=== PATIENT | female | born 1990 | race Caucasian/White ===

== ENCOUNTER 2022-11-29 11:13 | Emergency (ER) | payer SELFPAY ==
[2022-11-29 11:14] VITALS: BP 119/68; PULSE 107; RESP 17; TEMP 36.5; O2SAT 100
[2022-11-29 11:28] VITALS: RESP 15
--- NOTE | 2022-11-29 11:30 | DI.RAD_ITS ---
Exam(s) XR KNEE RT 3V AP,LAT,JED EXAM: XR KNEE RT 3V AP,LAT,JED CLINICAL HISTORY: Pain. TECHNIQUE: 2D digital imaging was performed. Three views. COMPARISON: No exams were available for comparison FINDINGS: BONES: No acute fracture is present. No bony destructive lesion is seen. JOINTS: The knee is normally aligned. No joint effusion is seen. SOFT TISSUE: Normal. IMPRESSION: Unremarkable radiographs of the right knee. DATA REPOSITORY: RADIATION DOSE DELIVERED:
--- NOTE | 2022-11-29 11:30 | DI.US_ITS ---
Exam(s) US LOWER EXTREMITY VENOUS RT EXAM: US LOWER EXTREMITY VENOUS RT CLINICAL HISTORY: Swelling, thigh pain. TECHNIQUE: Lower extremity venous ultrasound performed using grayscale, color-flow, and spectral Do ppler analysis. COMPARISON: No exams were available for comparison FINDINGS: The common femoral, femoral and popliteal veins demonstrate normal compressibility, augmentation, and color Doppler. The posterior tibial veins are patent. No saphenous vein thrombosis or other superfi cial venous thrombosis is seen. No hematoma or Calvo's cyst is seen. IMPRESSION: Negative lower extremity ultrasound. No evidence of DVT. DATA REPOSITORY:
--- NOTE | 2022-11-29 11:38 | W.ED.GENAD ---
Discharge Plan Disposition Patient Disposition: Home Condition: Stable Discharge Details Clinical Impression: Right leg swelling Primary Care Provider: None,None ED Provider: Clotilde Egan Home Meds and New Rx's Prescriptions: New methylprednisolone [Medrol (Scooby)] 4 mg tablets,dose pack See Rx Instructions .ROUTE .COMPLEX Qty: 21 0RF Rx Instructions: orally per package directions Discharge Instructions Instructions: Leg Edema (ED) Additional Instructions: No evidence of hematoma, bakers cyst, or blood clot in your leg. No evidence of knee abnormality, no joint effusion or bony abnormality. At this time unsure to what is causing the pain other than possible Musculoskeletal strain. Continue to apply nick bandages, Rest, Ice, and elevation. Please take Tylenol or Ibuprofen with food every 4-6 hours as needed for pain and swelling. You may take the muscle relaxers as directed if needed. Follow up with primary care provider in 3-5 days. Return to ED sooner if any worsening or concerns. Increase oral fluids. 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 Denies known injury, has been taking Ibuprofen and applying Nick wrap with litle to no relief. Reports swelling to lateral thigh which has improved. No evidence of deformity or swelling. Contusion small noted to right lateral thigh. Patient is complaining of pain and Swelling which has somewhat resolved. this occured after Standing for prolonged periods of time. Ultrasound ordered and Right knee XR. Ultrasound negative for DVT, x-rays within normal limits. Unsure of cause for patient's pain or swelling. Discharged home with instructions on RICE procedures. This text was generated using [employer]ation system, please disregard any oddities of phrase or misspellings. HPI General Mode of arrival: ambulatory. Date/Time Provider Initiated Documentation: 11/29/22 11:30. Limitations to Documentation: no limitations. Information obtained by: patient, RN notes reviewed and old records reviewed. 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 Denies known injury, has been taking Ibuprofen and applying Nick wrap with litle to no relief. Reports swelling to lateral thigh which has improved. Related Data Home Medications Medication Instructions Recorded Confirmed methylprednisolone 4 mg tablets in See Rx Instructions PO .COMPLEX 11/29/22 a dose pack (Medrol (Scooby)) #21 dose pk Previous Rx's Medication Instructions Recorded methylprednisolone 4 mg tablets in See Rx Instructions PO .COMPLEX 11/29/22 a dose pack (Medrol (Scooby)) #21 dose pk Allergies Allergy/AdvReac Type Severity Reaction Status Date / Time montelukast [From Singulair] Allergy Intermediate Other (See Unverified 11/29/22 11:24 Comment) pseudoephedrine Allergy Intermediate Other (See Unverified 11/29/22 11:24 [From Sudafed] Comment) General Stated Complaint: Vascular AMIE: 3 Review of Systems All systems reviewed & are unremarkable except as noted in HPI and below Musculoskeletal Musculoskeletal: Reports as per HPI and Reports radiating pain into limb PFSH All Active Problems (Updated 11/29/22 @ 13:00 by Clotilde Egan NP) Right leg swelling (Acute) Social History Smoking/Tobacco Use Status: Current every day Tobacco Type: e-cigarettes Smoking risk assessment performed?: Yes Alcohol Intake: current Alcohol Intake frequency: holidays/special occasions only Alcohol type: wine Drug use: Never Substance use type: does not use Housing: house Exam Narrative Exam Narrative: Constitutional: Alert and oriented x3. Appears stated age. Normal body habitus. Head: Normocephalic, no trauma. Eyes: Pupils PERRL, Red reflex noted, EOM's intact. Eyelids symmetrical without lesions, discharge, or swelling. ENT: Bilateral TM's WNL, External ear normal to inspection, no mastoid TTP, swelling, or erythema, Nasal turbinates WNL, no nasal discharge. Normal dentition, Posterior pharynx WNL, no exudate. Chest: RRR, Normal S1, S2, distal pulses intact. Resp: Lungs clear to auscultation bilaterally, no wheezes, rales, or rhonchi. Abdomen: Soft, non-distended, Normoactive bowel sounds all 4 quads. Musculoskeletal: Normal gait, 5/5 strength to all four extremities. Skin: No suspicious rashes or lesions. Capillary refill less than 2 sec. Neurologic: Cranial nerves II-XII intact. Alert and oriented x 3. Motor: No deficits noted. Sensory: Intact bilaterally all 4 extremities. Hematologic/Lymphatic: No ecchymosis, no lymphadenopathy. Extrem Right lower extremity: hip/thigh Details: normal to inspection and tenderness Location: of the proximal upper leg Location: laterally Course Vital Signs Vital signs: Vital Signs Temperature 36.5 C 11/29/22 11:14 Pulse 107 H 11/29/22 11:14 Respiratory Rate 17 11/29/22 11:14 Blood Pressure 119/68 11/29/22 11:14 Pulse Oximetry 100 11/29/22 11:14 Temperature 36.5 C 11/29/22 11:14 Temperature Source Temporal Artery Scan 11/29/22 11:14 Pulse 107 H 11/29/22 11:14 Respiratory Rate 15 11/29/22 11:28 Respiratory Effort Normal 11/29/22 11:28 Respiratory Depth Normal 11/29/22 11:28 Respiratory Pattern Normal 11/29/22 11:28 Blood Pressure 119/68 11/29/22 11:14 Blood Pressure Position Sitting 11/29/22 11:14 Pulse Oximetry 100 11/29/22 11:14 Oxygen Delivery Method Room Air 11/29/22 11:14 Oxygen Flow Rate 0 11/29/22 11:14 Pain Level 6 11/29/22 11:28
[2022-11-29] MEDS: Cyclobenzaprine 10 MG TAB PO (13:10)
[2022-11-29] MEDS: Cyclobenzaprine 10 MG TAB, 3 TABS/BTL PO (13:10)
== END 2022-11-29 13:18 | disposition home or self-care (01) ==
PROVIDERS: Emergency Provider Registered Nurse Emergency
DX: R22.41 Localized swelling, mass and lump, right lower limb (principal); F17.290 Nicotine dependence, other tobacco product, uncomplicated
CPT/HCPCS: 73562; 81025; 99284; 93971

== ENCOUNTER 2023-04-15 18:54 | Emergency (ER) | payer SELFPAY ==
[2023-04-15] VITALS (14 sets, daily range): BP systolic 102–124; BP diastolic 21–71; PULSE 83–127; RESP 9–25; TEMP 36.4–36.5; O2SAT 95–100
[2023-04-15 19:13] LABS: Abs Immature Grans 0.04 10^3/uL (0.0-0.06); Absolute Basophil Count 0.06 10^3/uL (0.0-0.2); Absolute Lymphocyte Count 0.98 10^3/uL (1.2-3.4); Absolute Neutrophil Count 10.09 10^3/uL (1.2-6.7); Basophils % 0.5; Eosinophils % 0.9; HCT 45.2 % (36.0-46.0); HGB 15.2 g/dL (11.2-15.7); Immature Grans % 0.3; Lymphocytes % 8.4; MCH 30.3 pg (27.0-33.0); MCHC 33.6 % (32.0-36.0); MCV 90 fL (80-95); MPV 9.6 fL (8.0-11.0); Monocytes % 3.4; Neutrophils % 86.5; Platelet Count 236 10^3/uL (130-400); RBC 5.01 10^6/uL (3.93-5.22); RDW 12.4 % (11.7-14.6); RDW-SD 40.4 fL; WBC 11.67 10^3/uL (4.4-10.8)
[2023-04-15 19:14] LABS: Absolute Eosinophil Count 0.11 10^3/uL (0.0-0.7)
[2023-04-15] MEDS: Normal Saline 1,000 ML 1000 ML IV (19:18)
--- NOTE | 2023-04-15 19:20 | ED.GENADUL_ITS ---
HPI General Mode of arrival: ambulatory . Date/Time Provider Initiated Documentation: 04/15/23 18:58 . Limitations to Documentation: no limitations . Information obtained by: patient, RN notes reviewed and old records reviewed . HPI Narrative: 32 year old female presents to the ED with CC of N/V/D and periumbilical pain. It began on . She reports she spiked a fever yesterday and her family and boyfriend have recently had similar symptoms and diagnosed with Influenza A. Related Data Home Medications Medication Instructions Recorded Confirmed dicyclomine 10 mg capsule 10 mg PO TID PRN abdominal pain 04/15/23 #10 caps metoclopramide HCl 5 mg tablet 5 mg PO QACHS PRN nausea and 04/15/23 (Reglan) vomiting #14 tabs Previous Rx's Medication Instructions Recorded dicyclomine 10 mg capsule 10 mg PO TID PRN abdominal pain 04/15/23 #10 caps metoclopramide HCl 5 mg tablet 5 mg PO QACHS PRN nausea and 04/15/23 (Reglan) vomiting #14 tabs Allergies Allergy/AdvReac Type Severity Reaction Status Date / Time montelukast [From Singulair] Allergy Intermediate Other (See Verified 04/15/23 19:07 Comment) pseudoephedrine Allergy Intermediate Other (See Verified 04/15/23 19:07 [From Waldemar] Comment) General Stated Complaint: Nausea/Vomit/Diar AMIE: 3 Review of Systems All systems reviewed & are unremarkable except as noted in HPI and below Gastrointestinal Gastrointestinal: Reports abdominal pain, Reports diarrhea, Reports nausea and Reports vomiting Exam Narrative Exam Narrative: Constitutional: Alert and oriented x3. Appears stated age. Normal body habitus. Head: Normocephalic, no trauma. Eyes: Pupils PERRL, Red reflex noted, EOM's intact. Eyelids symmetrical without lesions, discharge, or swelling. ENT: Bilateral TM's WNL, External ear normal to inspection, no mastoid TTP, swelling, or erythema, Nasal turbinates WNL, no nasal discharge. Normal dentition, Posterior pharynx WNL, no exudate. Chest: RRR, Normal S1, S2, distal pulses intact. Resp: Lungs clear to auscultation bilaterally, no wheezes, rales, or rhonchi. Abdomen: Soft, non-distended, Normoactive bowel sounds all 4 quads. Musculoskeletal: Normal gait, 5/5 strength to all four extremities. Skin: No suspicious rashes or lesions. Capillary refill less than 2 sec. Neurologic: Cranial nerves II-XII intact. Alert and oriented x 3. Motor: No deficits noted. Sensory: Intact bilaterally all 4 extremities. Reflexes: DTR's intact bilaterally.. Hematologic/Lymphatic: No ecchymosis, no lymphadenopathy. Course Vital Signs Vital signs: Vital Signs Temperature 36.4 C L 04/15/23 19:00 Pulse 127 H 04/15/23 19:00 Respiratory Rate 16 04/15/23 19:00 Blood Pressure 118/69 04/15/23 19:00 Pulse Oximetry 100 04/15/23 19:00 Temperature 36.4 C L 04/15/23 19:00 Pulse 127 H 04/15/23 19:00 Respiratory Rate 16 04/15/23 19:00 Blood Pressure 118/69 04/15/23 19:00 Blood Pressure Position Supine 04/15/23 19:00 Pulse Oximetry 100 04/15/23 19:00 Oxygen Delivery Method Room Air 04/15/23 19:00 Oxygen Flow Rate 0 04/15/23 19:00 Pain Level 8 04/15/23 19:00 Lab/Test Results Lab/Test Results: Laboratory Tests Range/Units 04/15/23 19:05 WBC (4.4-10.8) 10^3/uL 11.67 H RBC (3.93-5.22) 10^6/uL 5.01 Hgb (11.2-15.7) g/dL 15.2 Hct (36.0-46.0) % 45.2 MCV (80-95) fL 90 MCH (27.0-33.0) pg 30.3 MCHC (32.0-36.0) % 33.6 RDW (11.7-14.6) % 12.4 Plt Count (130-400) 10^3/uL 236 MPV (8.0-11.0) fL 9.6 Immature Gran % 0.3 Neutrophils % 86.5 Lymphocytes % 8.4 Monocytes % 3.4 Eosinophils % 0.9 Basophils % 0.5 Nucleated RBC % (0.0-0.3) % 0.0 Absolute Neutrophils (1.2-6.7) 10^3/uL 10.09 H Absolute Lymphocytes (1.2-3.4) 10^3/uL 0.98 L Absolute Monocytes (0.1-0.8) 10^3/uL 0.40 Absolute Eosinophils (0.0-0.7) 10^3/uL 0.11 Absolute Basophils (0.0-0.2) 10^3/uL 0.06 Medical Decision Making 32 year old female presents to the ED with CC of N/V/D and periumbilical pain. It began on . She reports she spiked a fever yesterday and her family and boyfriend have recently had similar symptoms and diagnosed with Influenza A. Workup ordered including CBC, CMP, lipase, urinalysis, urine Prag and Fluvid. Liter of normal saline and Reglan. Patient is been taking Zofran p.o. unsure of last dose at home with little to no relief. On patient reevaluation, she is still c/o abd pain, Toradol ordered and additional liter of LR. Mild leukocytosis 11.67, glucose 107, urinalysis shows 40 ketones moderate blood 5-10 RBCs no leukocytes no nitrites cultures not indicated at this time. Stool studies added onto labs for bacterial pathogen and ova parasites. CT is indicative of gastroenteritis, will send patient home with some Reglan, dicyclomine and clear liquid diet advance as tolerated. Additional liter of LR done infusing, Droperidol 1.25 mg IV ordered for Nausea and abdominal pain. This text was generated using [employer] dictation system, please disregard any oddities of phrase or misspellings. Imaging Data Radiologic Study: Imaging: CT Scan Radiologist's impression: COMPARISON: US LOWER EXTREMITY VENOUS RT 11/29/2022 12:10 PM FINDINGS: Liver: Normal. Gallbladder and bile ducts: Normal. Pancreas: Normal. Spleen: Normal. Adrenal glands: Normal. No mass. Kidneys and ureters: Normal. Stomach and bowel: Multiple loops of nondilated, gas and fluid-filled small and large bowel, likely enteritis/diarrhea. Appendix: Appendix normal. Intraperitoneal space: Small amount of pelvic free fluid, likely physiologic. Vasculature: Unremarkable. No abdominal aortic aneurysm. Lymph nodes: Unremarkable. No enlarged lymph nodes. Urinary bladder: Unremarkable as visualized. Reproductive: Unremarkable as visualized. Bones/joints: No acute abnormality. Soft tissues: Small fat containing umbilical hernia. IMPRESSION: Multiple loops of nondilated, gas and fluid-filled small and large bowel, likely enteritis/diarrhea. Thank you for allowing us to participate in the care of your patient. Dictated and Authenticated by: Jacob Gonzales MD Lab Data Lab results reviewed: Yes I reviewed the patient's lab results. Labs: Laboratory Tests Range/Units 04/15/23 19:05 WBC (4.4-10.8) 10^3/uL 11.67 H RBC (3.93-5.22) 10^6/uL 5.01 Hgb (11.2-15.7) g/dL 15.2 Hct (36.0-46.0) % 45.2 MCV (80-95) fL 90 MCH (27.0-33.0) pg 30.3 MCHC (32.0-36.0) % 33.6 RDW (11.7-14.6) % 12.4 Plt Count (130-400) 10^3/uL 236 MPV (8.0-11.0) fL 9.6 Immature Gran % 0.3 Neutrophils % 86.5 Lymphocytes % 8.4 Monocytes % 3.4 Eosinophils % 0.9 Basophils % 0.5 Nucleated RBC % (0.0-0.3) % 0.0 Absolute Neutrophils (1.2-6.7) 10^3/uL 10.09 H Absolute Lymphocytes (1.2-3.4) 10^3/uL 0.98 L Absolute Monocytes (0.1-0.8) 10^3/uL 0.40 Absolute Eosinophils (0.0-0.7) 10^3/uL 0.11 Absolute Basophils (0.0-0.2) 10^3/uL 0.06 Sodium (136-145) mmol/L 137 Potassium (3.5-5.1) mmol/L 3.6 Chloride (98-107) mmol/L 102 Carbon Dioxide (21.0-32.0) mmol/L 23.9 Anion Gap (3-11) mmol/L 11.1 H BUN (7-18) mg/dL 7 Creatinine (0.55-1.02) mg/dL 0.9 Est GFR (CKD-EPI 2020) (mL/min/1.73m2) 88.20 Glucose (74-106) mg/dL 107 H Calcium (8.5-10.1) mg/dL 8.8 Magnesium (1.8-2.4) mg/dL 1.9 Total Bilirubin (0.2-1.0) mg/dL 0.2 AST (15-37) U/L 21 ALT (14-59) U/L 17 Alkaline Phosphatase (46-116) U/L 54 Total Protein (6.4-8.2) g/dL 7.6 Albumin (3.4-5.0) g/dL 3.7 Lipase (16-77) U/L 16 COVID-19 Source Nasopharynx SARS-CoV-2 (PCR) (Negative) Negative Influenza Type A (PCR) (Negative) Negative Influenza Type B (PCR) (Negative) Negative RSV (PCR) (Negative) Negative Quality:SDOH Health Related Social Needs: No Data to Display PFSH All Active Problems (Updated 04/15/23 @ 21:48 by Clotilde Egan NP) Gastroenteritis (Acute) Social History Smoking/Tobacco Use Status: Current every day Tobacco Type: e-cigarettes Smoking risk assessment performed?: Yes Alcohol Intake: current Alcohol Intake frequency: holidays/special occasions only Alcohol type: wine Drug use: Never Substance use type: does not use Housing: house Discharge Plan Disposition Patient Disposition: Home Condition: Stable Discharge Details Clinical Impression: Gastroenteritis Primary Care Provider: None,None ED Provider: Clotilde Egan Meds and New Rx's Prescriptions: New metoclopramide HCl [Reglan] 5 mg tablet 5 mg PO QACHS PRN (Reason: nausea and vomiting) Qty: 14 0RF Rx Instructions: Take one tablet before meals and at bedtime as needed for N/V dicyclomine 10 mg capsule 10 mg PO TID PRN (Reason: abdominal pain) Qty: 10 0RF Rx Instructions: Take one capsule by mouth up to 3 times daily as needed for stomach cramping. Discharge Instructions Instructions: Gastroenteritis (ED) Additional Instructions: At this time there is some inflammation of your bowel wall indicative of gastroenteritis or the stomach flu. No evidence for influenza A COVID or RSV. Your labs are all largely unremarkable. No electrolyte abnormality. Please take the nausea medication and abdominal cramping medication as directed. Clear liquids for the next 24 to 48 hours, advance as tolerated. Practice a bland diet stay away from anything fried fatty spicy or dairy. Follow up with primary care provider in 3-5 days. Return to ED sooner if any worsening or concerns. Increase oral fluids. Please drink Gatorade or electrolyte drink while having diarrhea. If this lasts longer than 7 days please take Imodium as directed.
[2023-04-15] MEDS: Metoclopramide 10 MG/2 ML VIAL IVP (19:23)
[2023-04-15 19:25] LABS: ALT 17 U/L (14-59); AST 21 U/L (15-37); Albumin 3.7 g/dL (3.4-5.0); Alkaline Phosphatase 54 U/L (46-116); Anion Gap 11.1 mmol/L (3-11); BUN 7 mg/dL (7-18); Bilirubin, Total 0.2 mg/dL (0.2-1.0); CO2 23.9 mmol/L (21.0-32.0); CREATININE 0.9 mg/dL (0.55-1.02); Calcium 8.8 mg/dL (8.5-10.1); Chloride 102 mmol/L (98-107); Glucose 107 mg/dL (74-106); Lipase 16 U/L (16-77); Magnesium 1.9 mg/dL (1.8-2.4); Potassium 3.6 mmol/L (3.5-5.1); Sodium 137 mmol/L (136-145); Total Protein 7.6 g/dL (6.4-8.2)
--- NOTE | 2023-04-15 20:15 | DI.CT_ITS ---
Exam(s) CT ABDOMEN PELVIS W EXAM: CT ABDOMEN PELVIS W CLINICAL HISTORY: Abdominal Pain, N/V/D TECHNIQUE: Imaging Protocol: Axial computed tomography images with coronal and sagittal reformatted images were created and reviewed. CONTRAST MATERIAL: Intravenous: Omnipaque 350 Contrast volume:100 mL Oral: No COMPARISON: No exams were available for comparison FINDINGS: ABDOMEN: Lung Bases: Normal where visualized. Liver: Normal density. No measurable mass. Portal, Superior Mesenteric, and Splenic Veins: Unremarkable. Gallbladder and Biliary Tract: No radiodense calculus or dilation. Pancreas: Normal density, no abnormal calcifications or inflammatory process. Spleen: Normal. Calcification in the spleen may reflect prior granulomatous disease. Adrenals: No masses seen. Kidneys: Normal size, contour and axis. No radiodense stones or obstructive uropathy. No masses seen. Abdominal Aorta: Abdominal portion non-dilated. Bowel: No obstruction or bowel wall thickening. Appendix is unremarkable. The stomach is incompletely distended limiting evaluation. There are fluid-filled loops of small and large bowel which can be s een with a diarrheal illness. Peritoneal Cavity: There is a small amount of fluid in the pelvis. No free air. Lymph Nodes: Within normal limits. Bones: Within normal limits for the patient's age. Soft Tissues: There is a small fat containing umbilical hernia. PELVIS: Bladder: The urinary bladder is not distended limiting evaluation. Reproductive Organs: Unremarkable as visualized. Lymph Nodes: Within normal limits. Bones: Within normal limits for the patient's age. IMPRESSION: There are fluid-filled loops of small and large bowel noted which can be seen with diarrheal illness. RADIATION DOSE DELIVERED: 841.18mGy.cm Total DLP DATA REPOSITORY: All CT scans at this facility are submitted to the National Radiology Data Registry (NRDR) Dose Index Registry (DIR) with the [employer] (A[employer]). RADIATION OPTIMIZATION: All CT scans at this facility use at least one of these dose optimization te chniques: automated exposure control; mA and/or kV adjustment per patient size (includes targeted exa ms where dose is matched to clinical indication); or iterative reconstruction.
[2023-04-15 20:20] LABS: COVID-19 PCR Negative (Negative); Influenza A PCR Negative (Negative); Influenza B PCR Negative (Negative); RSV PCR Negative (Negative)
[2023-04-15 20:21] LABS: Source Nasopharynx
[2023-04-15] MEDS: Normal Saline - Diluent 50 ML VIAL IJ (20:37)
[2023-04-15] MEDS: Omnipaque 350 MG/ML 100 ML BTL IJ (20:38)
--- NOTE | 2023-04-15 21:44 | DI.VRAD_ITS ---
PROCEDURE INFORMATION: Exam: CT Abdomen And Pelvis With Contrast Exam date and time: 04/15/2023 8:41 PM Age: 32 years old Clinical indication: Abdominal tenderness and nausea and vomiting; Patient HX: Abdominal pain, n/v/d TECHNIQUE: Imaging protocol: Computed tomography of the abdomen and pelvis with contrast. Contrast material: OMNIPAQUE 350; Contrast volume: 100 ml; Contrast route: INTRAVENOUS (IV); COMPARISON: US LOWER EXTREMITY VENOUS RT 11/29/2022 12:10 PM FINDINGS: Liver: Normal. Gallbladder and bile ducts: Normal. Pancreas: Normal. Spleen: Normal. Adrenal glands: Normal. No mass. Kidneys and ureters: Normal. Stomach and bowel: Multiple loops of nondilated, gas and fluid-filled small and large bowel, likely enteritis/diarrhea. Appendix: Appendix normal. Intraperitoneal space: Small amount of pelvic free fluid, likely physiologic. Vasculature: Unremarkable. No abdominal aortic aneurysm. Lymph nodes: Unremarkable. No enlarged lymph nodes. Urinary bladder: Unremarkable as visualized. Reproductive: Unremarkable as visualized. Bones/joints: No acute abnormality. Soft tissues: Small fat containing umbilical hernia. IMPRESSION: Multiple loops of nondilated, gas and fluid-filled small and large bowel, likely enteritis/diarrhea. Dictated and Authenticated by: Jacob Gonzales MD. Ordering:REGIAN Mabry MD
[2023-04-15] MEDS: Famotidine 20 MG/2 ML VIAL IVP (21:49)
[2023-04-15] MEDS: Ketorolac 15 MG/ML VIAL IVP (21:49)
[2023-04-15] MEDS: Normal Saline Flush 10 ML SYR IVP (21:50)
[2023-04-15] MEDS: Lactated Ringers 1,000 ML 1000 ML IV (21:50)
[2023-04-15 22:50] LABS: Bilirubin Negative (Negative); Blood Moderate (Negative); Clarity Clear (Clear); Glucose Negative (Negative); Ketones 40 mg/dL (Negative); Leukocyte Esterase Negative (Negative); Nitrite Negative (Negative); Specific Gravity <= 1.005 (1.005-1.025); Urobilinogen 0.2 mg/dL (Up to 0.2); pH 5.5 (5-8)
[2023-04-15 22:55] LABS: WBC Negative HPF (0-5)
[2023-04-15 22:56] LABS: Bacteria Rare HPF (Negative); C & S Indicated? No; Casts Negative LPF (Negative); Crystals Negative HPF (Negative); Epithelial Cells Rare HPF (Negative); Mucus Negative (Negative)
[2023-04-15] MEDS: Droperidol 5 MG/2 ML VIAL 1.25 MG IVP (23:12)
[2023-04-15] MEDS: Dicyclomine 10 MG CAP PO ×2 (23:53)
[2023-04-15] MEDS: Metoclopramide 10 MG TAB 5 MG PO (23:53)
[2023-04-16 22:36] LABS: Campylobacter PCR Negative (Negative); Salmonella PCR Negative (Negative); Shiga Toxin PCR Negative (Negative); Shigella/Enteroinvasive Ecoli Negative (Negative)
--- NOTE | 2023-04-17 15:06 | NUR.NOTE ---
Patient called asking for a work note. Note written Please excuse from work until Monday04/21/23. [facility] Copy sent to medical records and original mailed to patient. Nursing Note:
--- NOTE | 2023-04-19 17:42 | NUR.NOTE ---
Nursing Note: Yusra Whalen - took patient call for stool results. Was able to view results in chart and relay inforamation to patient. However, was unable to write a note as to why she was in the chart due to IS chart limitations.
== END 2023-04-15 23:54 | disposition home or self-care (01) ==
PROVIDERS: Emergency Provider Registered Nurse Emergency
DX: K52.9 Noninfective gastroenteritis and colitis, unspecified (principal)
CPT/HCPCS: 80053; 81025; 83690; 87505; 87637; 96361; 96374; 96375; 99285; 74177; 81003; 81015; 83735; 85025; 87177; 99284; J1790; J1885; J2765; J3490

== ENCOUNTER 2023-08-02 11:11 | Emergency (ER) | payer SELFPAY ==
[2023-08-02 11:28] VITALS: BP 104/68; PULSE 85; RESP 15; TEMP 36.8; O2SAT 98
--- NOTE | 2023-08-02 11:30 | DI.CT_ITS ---
Exam(s) CT ORBITS W EXAM: CT ORBITS W CLINICAL HISTORY: ?right orbital cellulitis. TECHNIQUE: Imaging Protocol: Axial computed tomography images with coronal and sagittal reformatted images were created and reviewed CONTRAST MATERIAL: Intravenous: Omnipaque 350 Contrast volume:100 mL COMPARISON: No exams were available for comparison FINDINGS: Globes: The anterior and posterior chambers are intact. Optic Nerves: Normal. Extraocular muscles: Normal. Retrobulbar fat: Normal. Orbital shearer: No definite fracture is noted. Superior ophthalmic veins: Normal. Sinuses: Unremarkable. Soft Tissues: There is right preseptal thickening and inflammation present consistent with cellulitis . No focal fluid collection is seen. Bones: Unremarkable. No destructive changes are seen. IMPRESSION: 1. Findings of a right preseptal cellulitis. 2. No abscess or bone involvement. 3. The orbits and retro-orbital soft tissues are unremarkable. RADIATION DOSE DELIVERED: 212.38mGy.cm Total DLP 212.38mGy.cm Total DLP 212.38mGy.cm Total DLP DATA REPOSITORY: All CT scans at this facility are submitted to the National Radiology Data Registry (NRDR) Dose Index Registry (DIR) with the [employer] (ACR). RADIATION OPTIMIZATION: All CT scans at this facility use at least one of these dose optimization te chniques: automated exposure control; mA and/or kV adjustment per patient size (includes targeted exa ms where dose is matched to clinical indication); or iterative reconstruction.
--- NOTE | 2023-08-02 11:45 | ED.GENADUL_ITS ---
Discharge Plan Disposition Patient Disposition: Home Condition: Stable Discharge Details Clinical Impression: Preseptal cellulitis of right eye Primary Care Provider: Unknown,Unknown ED Provider: Jerardo Jackson Home Meds and New Rx's Prescriptions: New amoxicillin-pot clavulanate 875-125 mg tablet 1 tab PO BID Qty: 14 0RF fluconazole 150 mg tablet 150 mg PO DAILY Qty: 2 0RF Rx Instructions: take 1 tablet on day 1 and if still symptomatic in 3 days take another 1 tablet prednisone 20 mg tablet 60 mg PO DAILY 4 Days Qty: 12 0RF Continued lorazepam 0.5 mg tablet 0.5 mg PO BID PRN Patient Comments: take 1 tablet by mouth every 12 hours if needed for anxiety MAY CAUSE DROWSINESS or dizziness Discharge Instructions Additional Instructions: You are being treated for a skin infection around the eye Your CAT scan did not show any concerning findings in the eye itself. Follow-up with your primary care provider within 1 week if this has not fully resolved If you feel more ill or new symptoms such as high fevers return to the emergency department for reevaluation HPI General Mode of arrival: ambulatory . Date/Time Provider Initiated Documentation: 08/02/23 11:15 . Limitations to Documentation: no limitations . Information obtained by: patient . History of Present Illness 32 year old F presents to the emergency department with the chief complaint of Right eye swelling , described as moderate, Patient started experiencing this day(s) (1) and it has been constant. No relieving factors improve symptom(s), No exacerbating factors reported . Patient notes denies fever/chills. Patient did receive the following treatments prior to arrival, none Related Data Home Medications Medication Instructions Recorded Confirmed amoxicillin 875 mg-potassium 1 tab PO BID #14 tabs 08/02/23 clavulanate 125 mg tablet fluconazole 150 mg tablet 150 mg PO DAILY #2 tabs 08/02/23 lorazepam 0.5 mg tablet 0.5 mg PO BID PRN 08/02/23 08/02/23 prednisone 20 mg tablet 60 mg (3 x 20 mg) PO DAILY 4 days 08/02/23 #12 tabs Previous Rx's Medication Instructions Recorded amoxicillin 875 mg-potassium 1 tab PO BID #14 tabs 08/02/23 clavulanate 125 mg tablet fluconazole 150 mg tablet 150 mg PO DAILY #2 tabs 08/02/23 prednisone 20 mg tablet 60 mg (3 x 20 mg) PO DAILY 4 days 08/02/23 #12 tabs Allergies Allergy/AdvReac Type Severity Reaction Status Date / Time montelukast [From Singulair] Allergy Intermediate Other (See Verified 08/02/23 11:33 Comment) pseudoephedrine Allergy Intermediate Other (See Verified 08/02/23 11:33 [From Waldemar] Comment) General Stated Complaint: Allergic AMIE: 3 Review of Systems All systems reviewed & are unremarkable except as noted in HPI and below Constitutional Constitutional: Denies chills, Denies fever(s) and Denies weakness Eyes Eyes: Denies loss of vision Cardiovascular Cardiovascular: Denies chest pain and Denies dyspnea Respiratory Respiratory: Denies cough and Denies dyspnea Gastrointestinal Gastrointestinal: Denies abdominal pain, Denies nausea and Denies vomiting Musculoskeletal Musculoskeletal: Denies joint swelling Neurologic Neurologic: Denies loss of vision and Denies weakness Exam Const General: no acute distress Orientation: alert HENMT Head: normal to inspection Ears: external ears normal General nose exam: external nose normal Mouth: moist mucous membranes Eyes Conjunctivae: conjunctivae normal Sclera: sclerae normal Pupils: PERRL Neck Neck: normal visual inspection Resp Effort & Inspection: normal respiratory effort and able to speak in complete sentences Cardio Rate: regular rate Skin General skin exam: no rashes or lesions noted Neuro General: patient alert and patient oriented x3 Extrem General: normal to inspection Psych Mental Status: mental status grossly normal Course Vital Signs Vital signs: Vital Signs Temperature 36.8 C 08/02/23 11:28 Pulse 85 08/02/23 11:28 Respiratory Rate 15 08/02/23 11:28 Blood Pressure 104/68 08/02/23 11:28 Pulse Oximetry 98 08/02/23 11:28 Temperature 36.8 C 08/02/23 11:28 Temperature Source Temporal Artery Scan 08/02/23 11:28 Pulse 85 08/02/23 11:28 Respiratory Rate 15 08/02/23 11:28 Respiratory Effort Normal 08/02/23 11:32 Blood Pressure 104/68 08/02/23 11:28 Blood Pressure Position Sitting 08/02/23 11:28 Pulse Oximetry 98 08/02/23 11:28 Oxygen Delivery Method Room Air 08/02/23 11:28 Oxygen Flow Rate 0 08/02/23 11:28 Pain Level 8 08/02/23 11:28 Medical Decision Making 5-year-old female who states she is a history of anxiety otherwise has no significant past medical history comes in with periorbital swelling since yesterday. She says she saw a black fly bite around the eye and has progressive swelling since then. Denies any changes in vision, no deep eye pain. Her right periorbital is swollen and mildly erythematous, the eye itself has no erythema, pupils are equal and reactive to light. No pain on movement of the eyes. Suspect periorbital cellulitis but will obtain CT to evaluate for orbital cellulitis Labs and imaging unremarkable has evidence of preseptal cellulitis with no evidence of orbital cellulitis. Patient has already had decreased along with just the Solu-Medrol, will add Augmentin. She is stable for discharge advised to follow-up with her PCP and return precautions given Differential Diagnosis Differential Diagnosis: Preseptal cellulitis, orbital cellulitis, local skin reaction Imaging Data Radiologic Study: Attestation: I personally reviewed and interpreted this imaging study as follows: Imaging: CT Scan Radiologist's impression: IMPRESSION: 1. Findings of a right preseptal cellulitis. 2. No abscess or bone involvement. 3. The orbits and retro-orbital soft tissues are unremarkable. Lab Data Lab results reviewed: Yes I reviewed the patient's lab results. Quality:SDOH Health Related Social Needs: No Data to Display PFSH All Active Problems (Updated 08/02/23 @ 14:21 by Jerardo Jackson MD) Preseptal cellulitis of right eye (Acute) Social History Smoking/Tobacco Use Status: Current every day Tobacco Type: cigarettes Smoking risk assessment performed?: Yes Alcohol Intake: current Alcohol Intake frequency: holidays/special occasions only Alcohol type: wine Drug use: Never Substance use type: does not use Housing: house [facility] Have you Been Recently Intoxicated or Drunk Within the Last 30 days?: No Have you Ever Experienced Previous Episodes of Alcohol Withdrawal?: No Have you ever Experienced Withdrawal Seizures?: No Have you ever Experienced Delirium Tremens(DT)s?: No Have you ever undergone Alcohol Rehabilitation Treatment (i.e, inpt ot outpatient treatment programs)?: No Have you ever Experienced Blackouts?: No Have you ever Combined Alcohol with other Downers within the last 90 days?: No Have you ever Combined Alcohol with any other Substance of Abuse during the last 90 days?: No Result: 0
[2023-08-02] MEDS: methylPREDNISolone SUCC 125 MG VIAL IVP (11:55)
[2023-08-02] MEDS: Normal Saline 1,000 ML 1000 ML IV (11:55)
[2023-08-02 12:10] LABS: Abs Immature Grans 0.01 10^3/uL (0.0-0.06); Absolute Basophil Count 0.03 10^3/uL (0.0-0.2); Absolute Eosinophil Count 0.09 10^3/uL (0.0-0.7); Absolute Lymphocyte Count 1.77 10^3/uL (1.2-3.4); Absolute Monocyte Count 0.31 10^3/uL (0.1-0.8); Absolute Neutrophil Count 2.85 10^3/uL (1.2-6.7); Basophils % 0.6 %; Eosinophils % 1.8 %; HCT 38.8 % (36.0-46.0); HGB 12.9 g/dL (11.2-15.7); Immature Grans % 0.2 %; MCHC 33.2 % (32.0-36.0); MCV 93 fL (80-95); MPV 9.7 fL (8.0-11.0); Monocytes % 6.1 %; Neutrophils % 56.3 %; Platelet Count 188 10^3/uL (130-400); RBC 4.16 10^6/uL (3.93-5.22); RDW 12.6 % (11.7-14.6); RDW-SD 43.3 fL; WBC 5.06 10^3/uL (4.4-10.8)
[2023-08-02 12:30] LABS: ALT 20 U/L (14-59); AST 12 U/L (15-37); Albumin 3.7 g/dL (3.4-5.0); Alkaline Phosphatase 44 U/L (46-116); Anion Gap 5.8 mmol/L (3-11); BUN 14 mg/dL (7-18); Bilirubin, Total 0.4 mg/dL (0.2-1.0); CO2 29.2 mmol/L (21.0-32.0); CREATININE 0.8 mg/dL (0.55-1.02); Calcium 8.5 mg/dL (8.5-10.1); Chloride 106 mmol/L (98-107); Estimated GFR 101.59 (mL/min/1.73m2); Glucose 79 mg/dL (74-106); Magnesium 1.9 mg/dL (1.8-2.4); Potassium 4.3 mmol/L (3.5-5.1); Sodium 141 mmol/L (136-145)
[2023-08-02] MEDS: Omnipaque 350 MG/ML 100 ML BTL IJ (13:13)
[2023-08-02] MEDS: Normal Saline - Diluent 50 ML VIAL IJ (13:15)
== END 2023-08-02 15:12 | disposition home or self-care (01) ==
PROVIDERS: Emergency Provider Emergency Medicine
DX: L03.213 Periorbital cellulitis (principal); F17.210 Nicotine dependence, cigarettes, uncomplicated
CPT/HCPCS: 36415; 80053; 96361; 96374; 99285; 70481; 83735; 85025; 99284; J2919; J3490